=== PATIENT | female | born 1980 ===

== ENCOUNTER 2017-11-17 18:05 | Emergency (ER) | payer SELFPAY ==
[2017-11-17 18:14] VITALS: RESP 16
--- NOTE | 2017-11-17 18:16 | EDPHY ---
H & P Stated Complaint: KONG X 2 WEEKS [facility] FOR TENSION KONG WITH PROPRANOLOL Time Seen by Provider: 11/17/17 18:15 - Personal History LMP (Females 10-55): 15-21 Days Ago Current Tetanus/Diphtheria Vaccine: No - Medical/Surgical History Hx Asthma: No Hx Chronic Respiratory Disease: No Hx Diabetes: Yes Hx Cardiac Disease: No Hx Renal Disease: No Hx Cirrhosis: No Hx Alcoholism: No Hx HIV/AIDS: No Hx Splenectomy or Spleen Trauma: No Other PMH: DENIES - Social History Smoking Status: Never smoked Constitutional: Initial Vital Signs Temperature (C) 36.3 C 11/17/17 18:11 Heart Rate 78 11/17/17 18:11 Respiratory Rate 16 11/17/17 18:11 Blood Pressure 150/85 H 11/17/17 18:11 O2 Sat (%) 97 11/17/17 18:11 O2 Delivery Mode Room Air Allergies/Adverse Reactions: No Known Allergies Allergy (Verified 11/17/17 18:06) Home Medications: Medication Instructions Recorded Metformin 1000 mg 11/17/17 Propranolol HCl 11/17/17 Medical Decision Making - Diagnostics Imaging Results: Imaging Impressions Head CT 11/17/17 18:24 Impression: Normal. Results called and discussed with Derick Richards MD, at 11/17/2017 19:44 General information for patients regarding this examination can be found at [email or web address]. If you have questions or comments about this report, please contact me at (hospital) or [phone] (cell). Imaging: Discussed imaging studies w/ call center coordinator Radiologist, I viewed and interpreted images myself ED Course/Re-evaluation: CHIEF COMPLAINT: Headache HISTORY OF PRESENT ILLNESS: The patient is a [place]-speaking 37 y/o female with a history of diabetes and anxiety arriving with her family complaining of a constant occipital headache for the last 2 weeks. She was prescribed propranolol for anxiety and has tried taking this for her headache without improvement. Sometimes she has associated numbness along the top of her scalp. Occasionally she gets chest pain and sensation of a rapid heart rate; these symptoms improve with propranolol. She denies unilateral weakness or paresthesias, vision changes, speech difficulty, fever. No recent trauma or illness. History obtained via product operations associate. REVIEW OF SYSTEMS: A 10 point review of systems was performed and is negative with the exception of the elements mentioned in the history of present illness. PHYSICAL EXAM: HR, BP, O2 Sat, RR. Temp noted General Appearance: Alert, well hydrated, appropriate, and non-toxic appearing. Head: Atraumatic without scalp tenderness or obvious injury Eyes: Pupils equal, round, reactive to light and accommodation, EOMI, no trauma , no injection. Nose: Atraumatic, no rhinorrhea, clear. Throat: Mucus membranes moist. Neck: Supple, nontender, no lymphadenopathy. Respiratory: No retractions, no distress, no wheezes, and no accessory muscle use. Lungs are clear to auscultation bilaterally. Cardiovascular: Regular rate and rhythm, no murmurs, rubs, or gallops. Good capillary refill all extremities. Gastrointestinal: Abdomen is soft, nontender, non-distended, no masses, no rebound, no guarding, no peritoneal signs. Musculoskeletal: Normal active ROM of all extremities, atraumatic. Neurological: Alert, appropriate, and interactive. The patient has non-focal cranial nerves, motor, sensory, and cerebellar exam. Skin: No rashes, good turgor, no nodules on palpation. Past medical history: Diabetes - Metformin, anxiety - propranolol Past surgical history: Denies Family history: Noncontributory Social history: [place]-speaking. Family at bedside. PCP: [facility]. DIAGNOSTICS/PROCEDURES/CRITICAL CARE TIME: Head CT: negative DIFFERENTIAL DIAGNOSIS: The differential diagnosis for the patient's headache included but was not limited to subarachnoid hemorrhage, migraine headache, tension headache and infectious causes such as meningitis, pharyngitis and sinusitis. MEDICAL DECISION MAKING: This is a 37 y/o female who presents with a 2-week history of a constant occipital headache and occasional scalp paresthesias. History is somewhat limited by language barrier. No focal neuro deficits. Presentation likely indicate migraine. Plan for IV, ISTAT, head CT, and symptomatic management. 30mg IV Toradol, 25mg IV Benadryl, 10mg IV Benadryl, 10mg IV Reglan administered for possible migraine. Reevaluated patient and discussed work up. Her head CT is negative. Her symptoms have completely resolved with migraine cocktail. Neuro exam remains normal. She would like to go home. She will be discharged with standard migraine care and return precautions. - Data Points Laboratory Results: 02/17/18 02/17/18 18:24 18:15 POC Hgb 11.2 gm/dL L gm/dL (12.6-16.3) POC Hct 33 % L % (38-47) POC Sodium 142 mEq/L mEq/L (135-145) POC Potassium 3.6 mEq/L mEq/L (3.3-5.0) POC Chloride 104 mEq/L mEq/L (97-110) POC BUN 15 mg/dL mg/dL (7-23) POC Creatinine 0.6 mg/dL mg/dL (0.6-1.0) POC Glucose 158 mg/dL H mg/dL (70-100) Beta HCG, Qual NEGATIVE Medications Given: Discontinued Medications Dexamethasone (Decadron Injection) 10 mg IVP EDNOW ONE Stop: 11/17/17 18:23 Last Admin: 11/17/17 18:37 Dose: 10 mg Diphenhydramine HCl (Benadryl Injection) 25 mg IVP EDNOW ONE Stop: 11/17/17 18:23 Last Admin: 11/17/17 18:35 Dose: 25 mg Ketorolac Tromethamine (Toradol) 30 mg IVP EDNOW ONE Stop: 11/17/17 18:23 Last Admin: 11/17/17 18:38 Dose: 30 mg Metoclopramide HCl (Reglan Injection) 10 mg IVP EDNOW ONE Stop: 11/17/17 18:23 Last Admin: 11/17/17 18:34 Dose: 10 mg Point of Care Test Results: 11/17/17 18:24 POC Sodium 142 POC Potassium 3.6 POC Chloride 104 POC BUN 15 POC Creatinine 0.6 POC Glucose 158 H Departure - Departure Disposition: Home, Routine, Self-Care Clinical Impression: Migraine Qualifiers: Migraine type: other Status migrainosus presence: without status migrainosus Intractability: not intractable Qualified Code(s): G43.809 - Other migraine, not intractable, without status migrainosus Condition: Good Instructions: Migraine Headache (ED) Additional Instructions: 1. Use Excedrin or ibuprofen as directed on the packaging as needed for recurrent headache. 2. Follow up with your primary care provider next week for reevaluation. 3. Return to the ED for severe pain, weakness or numbness on one side of your body, speech difficulty, or other worsening of condition. Referrals: NONE *PRIMARY CARE P,. [Primary Care Provider] - As per Instructions [facility] [[facility]] - As per Instructions Report Scribed for: Derick Richards Report Scribed by: Carmen Polanco Date of Report: 11/17/17 Time of Report: 18:23
[2017-11-17] MEDS ORDERED: DEXAMETHASONE 10 MG/ML VIAL IVP ONE (18:22)
[2017-11-17] MEDS ORDERED: KETOROLAC 30 MG/1 ML SDV IVP ONE (18:22)
[2017-11-17] MEDS ORDERED: METOCLOPRAMIDE 10 MG/2 ML VIAL IVP ONE (18:22)
[2017-11-17] MEDS ORDERED: IOPAMIDOL (ISOVUE-300) 100 ML BTL ONE (18:53)
[2017-11-17 20:25] VITALS: BP 132/89; PULSE 72; TEMP 97.9; O2SAT 96
== END 2017-11-17 20:25 | disposition home or self-care (01) ==
DX: G43.809 Other migraine, not intractable, without status migrainosus (principal); E11.9 Type 2 diabetes mellitus without complications; Z79.84 Long term (current) use of oral hypoglycemic drugs
CPT/HCPCS: 82947-QW; 96374; J1100; J1200; J1885; J2765; Q9967